=== PATIENT | male | born 1975 | race American Indian/Alaskan Native ===

== ENCOUNTER 2016-06-05 19:30 | Emergency (ER) | payer MEDICAID | END 2016-06-05 19:45 | disposition left against medical advice (07) | LOC: ED 19:30 | DX: Z00.8 Encounter for other general examination (principal); Z53.21 Procedure and treatment not carried out due to patient leaving prior to being seen by health care provider ==

== ENCOUNTER 2016-06-15 16:07 | Emergency (ER) | payer MEDICAID ==
[2016-06-15 17:40] LABS: Urine Drugs of Abuse Note Disclamer
[2016-06-15 17:55] LABS: Basophils % (Auto) 0.6 % (0.0-1.8); Eosinophils % (Auto) 1.3 % (0.0-4.3); Hematocrit 46.2 % (35.5-45.6); Hemoglobin 15.5 gm/dl (11.8-15.2); Mean Corpuscular HGB Conc 34 % (32-34); Mean Corpuscular Hemoglobin 30 pg (28-32); Mean Corpuscular Volume 90 fl (84-94); Platelet Count 211 K/mm3 (140-440); Red Blood Count 5.14 M/mm3 (3.65-5.03); Red Cell Distribution Width 14.4 % (13.2-15.2); White Blood Count 5.7 K/mm3 (4.5-11.0)
[2016-06-15 18:00] LABS: Bilirubin,Urine NEG (Negative); Blood,Urine NEG (Negative); Ketones,Urine NEG (Negative); Leukocyte Esterase,Urine TR (Negative); Mucus,Urine FEW /HPF; Nitrite,Urine NEG (Negative); Protein,Urine <15 mg/dL mg/dL (Negative); Urobilinogen,Urine < 2.0 mg/dL (<2.0)
[2016-06-15 18:01] LABS: Anion Gap 22 mmol/L; BUN/Creatinine Ratio 8.75; Blood Urea Nitrogen 7 mg/dL (9-20); Calcium 9.1 mg/dL (8.4-10.2); Carbon Dioxide 24 mmol/L (22-30); Chloride 99.1 mmol/L (98-107); Glucose 94 mg/dL (75-100); Potassium 3.7 mmol/L (3.6-5.0); Sodium 141 mmol/L (137-145)
--- NOTE | 2016-06-15 18:09 | Emergency Department Report ---
ED Psych HPI - General Chief Complaint: Psych Stated Complaint: SUICIDAL Time Seen by Provider: 06/15/16 17:46 Source: patient Mode of arrival: Ambulatory Limitations: No Limitations - History of Present Illness Initial Comments: 41-year-old male with a past medical history of bipolar presents to the hospital complains of suicidal ideation. Patient states he has felt this way for several months and it comes and goes. Splenis overdose on pills. History of suicide attempt in the past involving pill overdose and cutting his wrist. Patient states he hears voices sometimes. No physical complaints reported. Patient was seen here in the ER multiple times including yesterday for chest pain and was recently admitted for abnormal EKG and had a inpatient cardiology evaluation and echocardiogram. 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 - Related Data Previous Rx's Medication Instructions Recorded Last Taken Type Benztropine [Cogentin] 1 mg PO BID #30 tablet 06/09/[address] [Depakote Dr] 500 mg PO BID #30 tablet 06/09/16 Unknown Rx risperiDONE [RisperDAL] 2 mg PO BID #60 tablet 06/09/16 Unknown Rx Ibuprofen [Motrin] 800 mg PO Q8HR PRN #30 tablet 06/14/16 Unknown Rx Allergies Allergy/AdvReac Type Severity Reaction Status Date / Time No Known Allergies Allergy Unverified 02/16/16 11:24 ED Review of Systems ROS: Stated complaint: SUICIDAL Other details as noted in HPI Comment: All other systems reviewed and negative Other: Constitutional: No fevers chills Eyes: No eye pain visual changes ENT: No ear pain or throat pain Neck: Denies pain Respiratory: Denies cough wheezing shortness of breath Cardiovascular: Denies chest pain, palpitations, syncope GI: Denies abdominal pain, nausea, vomiting, diarrhea, : Denies dysuria Musculoskeletal: Denies back pain, Skin: Denies rash, lesions, erythema Neurologic: Denies headache, numbness, weakness Psychiatric: As per HPI ED Past Medical Hx - Past Medical History Hx Congestive Heart Failure: No Hx Diabetes: No Hx Psychiatric Treatment: Yes (PT has had previous inpatient treatment/ BIPOLAR) Hx Asthma: No Hx COPD: No Additional medical history: Outpatient is more coherent. 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 He has not had any cardiology follow-up for decades. - Surgical History Hx Open Heart Surgery: 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) Additional Surgical History: PNEUMOTHORAX - Social History Smoking Status: Current Every Day Smoker Substance Use Type: Alcohol - Medications Home Medications: Home Medications Medication Instructions Recorded Confirmed Last Taken Type Benztropine [Cogentin] 1 mg PO BID #30 tablet 06/09/16 06/15/[address] [Depakote Dr] 500 mg PO BID #30 tablet 06/09/16 Unknown Rx risperiDONE [RisperDAL] 2 mg PO BID #60 tablet 06/09/16 Unknown Rx Ibuprofen [Motrin] 800 mg PO Q8HR PRN #30 tablet 06/14/16 Unknown Rx ED Physical Exam - General Limitations: No Limitations - Other Other exam information: General: No limitations, patient is alert in no acute distress Head exam: Atraumatic, normocephalic Eyes exam: Normal appearance, pupils equal reactive to light, extraocular movements intact ENT: Moist mucous membrane, normal oropharynx Neck exam: Normal inspection, full range of motion, no meningismus nontender Respiratory exam: Clear to auscultation bilateral, no wheezes, rales, crackles Cardiovascular: Normal rate and rhythm, normal heart sounds Abdomen: Soft, nondistended, and nontender, with normal bowel sounds, no rebound, or guarding Extremity: Full range of motion normal inspection no deformity Back: Normal Inspection, full range of motion, no tenderness Neurologic: Alert, oriented x3, cranial nerves intact, no motor or sensory deficit Psychiatric: normal affect, normal mood Skin: Warm, dry, intact ED Course Vital Signs 06/15/16 06/15/16 16:50 17:52 Temperature 98.1 F Pulse Rate 102 H Respiratory 22 20 Rate Blood Pressure 108/69 O2 Sat by Pulse 97 99 Oximetry ED Medical Decision Making - Lab Data Result diagrams: 06/15/16 17:27 06/15/16 17:27 Lab Results 06/15/16 06/15/16 06/15/16 Range/Units 17:18 17:18 17:27 WBC (4.5-11.0) K/mm3 RBC (3.65-5.03) M/mm3 Hgb (11.8-15.2) gm/dl Hct (35.5-45.6) % MCV (84-94) fl MCH (28-32) pg MCHC (32-34) % RDW (13.2-15.2) % Plt Count (140-440) K/mm3 Lymph % (Auto) (13.4-35.0) % [place] % (Auto) (0.0-7.3) % Eos % (Auto) (0.0-4.3) % Baso % (Auto) (0.0-1.8) % Lymph # (1.2-5.4) K/mm3 [place] # (0.0-0.8) K/mm3 Eos # (0.0-0.4) K/mm3 Baso # (0.0-0.1) K/mm3 Seg Neutrophils % (40.0-70.0) % Seg Neutrophils # (1.8-7.7) K/mm3 Sodium 141 (137-145) mmol/L Potassium 3.7 (3.6-5.0) mmol/L Chloride 99.1 (98-107) mmol/L Carbon Dioxide 24 (22-30) mmol/L Anion Gap 22 mmol/L BUN 7 L (9-20) mg/dL Creatinine 0.8 (0.8-1.5) mg/dL Estimated GFR > 60 ml/min BUN/Creatinine Ratio 8.75 % Glucose 94 (75-100) mg/dL Calcium 9.1 (8.4-10.2) mg/dL Urine Color Yellow (Yellow) Urine Turbidity Clear (Clear) Urine pH 5.0 (5.0-7.0) Ur Specific [place] 1.015 (1.003-1.030) Urine Protein <15 mg/dl (Negative) mg/dL Urine Glucose (UA) Neg (Negative) mg/dL Urine Ketones Neg (Negative) mg/dL Urine Blood Neg (Negative) Urine Nitrite Neg (Negative) Urine Bilirubin Neg (Negative) Urine Urobilinogen < 2.0 (<2.0) mg/dL Ur Leukocyte Esterase Tr (Negative) Urine WBC (Auto) 4.0 (0.0-6.0) /HPF Urine RBC (Auto) 2.0 (0.0-6.0) /HPF U Epithel Cells (Auto) < 1.0 (0-13.0) /HPF Urine Mucus Few /HPF Urine Opiates Screen Presumptive negative Urine Methadone Screen Presumptive negative Ur Barbiturates Screen Presumptive negative Valproic Acid (50-100) ug/mL Ur Phencyclidine Scrn Presumptive negative Ur Amphetamines Screen Presumptive negative U Benzodiazepines Scrn Presumptive negative Urine Cocaine Screen Presumptive negative U Marijuana (THC) Screen Presumptive negative Drugs of Abuse Note Disclamer Plasma/Serum Alcohol (0-0.07) gm% 06/15/16 06/15/16 06/15/16 Range/Units 17:27 17:27 17:27 WBC 5.7 (4.5-11.0) K/mm3 RBC 5.14 H (3.65-5.03) M/mm3 Hgb 15.5 H (11.8-15.2) gm/dl Hct 46.2 H (35.5-45.6) % MCV 90 (84-94) fl MCH 30 (28-32) pg MCHC 34 (32-34) % RDW 14.4 (13.2-15.2) % Plt Count 211 (140-440) K/mm3 Lymph % (Auto) 36.8 H (13.4-35.0) % [place] % (Auto) 7.8 H (0.0-7.3) % Eos % (Auto) 1.3 (0.0-4.3) % Baso % (Auto) 0.6 (0.0-1.8) % Lymph # 2.1 (1.2-5.4) K/mm3 [place] # 0.4 (0.0-0.8) K/mm3 Eos # 0.1 (0.0-0.4) K/mm3 Baso # 0.0 (0.0-0.1) K/mm3 Seg Neutrophils % 53.5 (40.0-70.0) % Seg Neutrophils # 3.0 (1.8-7.7) K/mm3 Sodium (137-145) mmol/L Potassium (3.6-5.0) mmol/L Chloride (98-107) mmol/L Carbon Dioxide (22-30) mmol/L Anion Gap mmol/L BUN (9-20) mg/dL Creatinine (0.8-1.5) mg/dL Estimated GFR ml/min BUN/Creatinine Ratio % Glucose (75-100) mg/dL Calcium (8.4-10.2) mg/dL Urine Color (Yellow) Urine Turbidity (Clear) Urine pH (5.0-7.0) Ur Specific [place] (1.003-1.030) Urine Protein (Negative) mg/dL Urine Glucose (UA) (Negative) mg/dL Urine Ketones (Negative) mg/dL Urine Blood (Negative) Urine Nitrite (Negative) Urine Bilirubin (Negative) Urine Urobilinogen (<2.0) mg/dL Ur Leukocyte Esterase (Negative) Urine WBC (Auto) (0.0-6.0) /HPF Urine RBC (Auto) (0.0-6.0) /HPF U Epithel Cells (Auto) (0-13.0) /HPF Urine Mucus /HPF Urine Opiates Screen Urine Methadone Screen Ur Barbiturates Screen Valproic Acid < 2.8 L (50-100) ug/mL Ur Phencyclidine Scrn Ur Amphetamines Screen U Benzodiazepines Scrn Urine Cocaine Screen U Marijuana (THC) Screen Drugs of Abuse Note Plasma/Serum Alcohol < 0.01 (0-0.07) gm% - Medical Decision Making Patient hashallucinations and thoughts of suicidal plan therefore 1013 and transfer has been signed. I doubt compliance of medication since Depakote level is low on labs. Patient is medically cleared for psychiatric transfer. Most recent medications will be continued - Differential Diagnosis secondary gain, Homelessness, suicidal ideation, Critical Care Time: No Critical care attestation.: If time is entered above; I have spent that time in minutes in the direct care of this critically ill patient, excluding procedure time. ED Disposition Clinical Impression: Acute psychosis, Bipolar disorder, Corrected transposition of great vessels, Suicidal ideation, Medical clearance for psychiatric admission Disposition: DC/TX PSY HOSP/PSY UNIT Is pt being admited?: No Condition: Stable Time of Disposition: 19:43 (awaiting acceptance)
[2016-06-15] MEDS ORDERED: MOTRIN PO PRN (19:21)
[2016-06-15] MEDS: RisperDAL PO SCH (22:24)
[2016-06-15] MEDS: COGENTIN PO SCH (22:24)
[2016-06-16] MEDS: COGENTIN PO SCH ×2 (10:02→21:56)
[2016-06-16] MEDS: RisperDAL PO SCH ×2 (13:30→21:57)
--- NOTE | 2016-06-16 16:37 | Consultation ---
History of Present Illness - Reason for Consult Consult date: 06/16/16 Reason for consult: Suicidal thoughts - Chief Complaint Chief complaint: I was feeling something in my chest and I needed an EKG - History of Present Psychiatric Illness This is a 45 year old male with PMH of Transposition of the Great Vessels, HTN, GI Ulcers and a PPH of Bipolar Disorder v. Schizoaffective Disorder who now represents to [facility] for depression and suicidal ideation. Psychiatry was consulted after the patient was medically cleared and placed on a 1013 to evaluate the need for transfer to an emergency receiving acute psychiatric hospital. Upon assessment, this patient was familiar to the mental health it admin who accompanied this typewriter operator automatic into the room with the patient. The patient was pleasant and verbally responsive to direct questioning about his presentation. He was recently sent to a hospital in [facility], where he reportedly only stayed a few days prior to requesting discharge. We reviewed this chronic pattern and discussed the various reasons he decided to not complete the treatment process. He was mostly superficial during this conversation and appear to have much insight. We did discuss the current manifestation of his symptom cluster, which begets from somatic symptoms both in the gastrointestinal tract as well as in the thoracic area. Patient has had several surgical intervention, both in the childhood amnestic period as well as after it. Consequently, he is unable to identify specific events that lead to somatic complaints, but he frequent experiences them. He further notes that this worries him tremendously to the point of having overvalued ideas or even paranoia. There is associated sleep difficulties and other comorbid mood symptoms. Over time he has learned to imagine that there is something indeed physically wrong with him and he consequently seeks medical attention. This presentation is similar in nature. At the present time, he does reports persistent symptom of anxiety and a depressive syndrome with associated sensory misperceptions. He describes voices when under duress and describes thoughts of or dying associated with persistent sad states. He hasn't acted on these thoughts and he is actually very future oriented at the moment. Medications and Allergies Allergies Allergy/AdvReac Type Severity Reaction Status Date / Time No Known Allergies Allergy Unverified 02/16/16 11:24 Home Medications Medication Instructions Recorded Confirmed Last Taken Type Benztropine [Cogentin] 1 mg PO BID #30 tablet 06/09/16 06/15/[address] [Depakote Dr] 500 mg PO BID #30 tablet 06/09/16 Unknown Rx risperiDONE [RisperDAL] 2 mg PO BID #60 tablet 06/09/16 Unknown Rx Ibuprofen [Motrin] 800 mg PO Q8HR PRN #30 tablet 06/14/16 Unknown Rx Active Meds: Active Medications Benztropine Mesylate (Cogentin) 1 mg PO BID [facility] Last Admin: 06/16/16 10:02 Dose: 1 mg Divalproex Sodium (Depakote Dr) 500 mg PO BID [facility] Last Admin: 06/16/16 10:02 Dose: 500 mg Ibuprofen (Motrin) 800 mg PO Q8HR PRN PRN Reason: Pain Risperidone (Risperdal) 2 mg PO BID [facility] Last Admin: 06/16/16 13:30 Dose: 2 mg Past psychiatric history - Past Medical History Past Surgical History: Other (transposition of great vessels) Mental Status Exam - Vital signs Last Vital Signs Temp 97.5 F L 06/16/16 10:02 Pulse 72 06/16/16 10:02 Resp 18 06/16/16 10:02 BP 102/55 06/16/16 10:02 Pulse Ox 97 06/16/16 10:02 - Exam Orientation: time, place, person Affect: depressed, anxious Mood: anxious Thought content: somatic, other (overvalued ideas) Thought Process: Loose Associations Perceptions: none Speech: normal rate and pattern Concentration: distractible Motor activity: normal Level of consciousness: alert Memory: Intact Sleep Symptoms: Difficulty Falling Asleep Interaction: cooperative Results Result Diagrams: 06/15/16 17:27 06/15/16 17:27 Abnormal lab results 06/15/16 06/15/16 06/15/16 Range/Units 17:27 17:27 17:27 RBC 5.14 H (3.65-5.03) M/mm3 Hgb 15.5 H (11.8-15.2) gm/dl Hct 46.2 H (35.5-45.6) % Lymph % (Auto) 36.8 H (13.4-35.0) % [place] % (Auto) 7.8 H (0.0-7.3) % BUN 7 L (9-20) mg/dL Valproic Acid < 2.8 L (50-100) ug/mL All other labs normal. Assessment and Plan Assessment and plan: This is a 45 year old male with a history of Transposition of Great Vessels, HTN , GI Ulcers and Schizoaffective Disorder or Bipoalr Disorder who presents again to the ER with suicidal thoughts emanating from ruminative thinking and overvalued ideas related to somatic experience in his GI tract and thoracic area. At the current time he is taking the following medications: depakote, risperidone and cogentin. I recommend that we continue the current medication regimen and place him at an emergency receiving facility. I have begun the process of discussing the etiology of his somatic experience and the consequent overvalued ideas that lead to seeking medical attention. He does note a dental concern that the ER physicians should address if they find if an urgent concern. Often patient with schizoaffective disorder or bipolar disorder will experience poor dentition routinely due to there frequent inability to attend to their ADLs. This predisposes them to dental caries, tooth abscesses and other comorbidities. Please address this concern the patient is expressing, if needed. We appreciate the opportunity to collaborate on the care of this patient and we will both follow and help to manage this patient during his stay in the ER while he awaits placement.
[2016-06-17] MEDS: COGENTIN PO SCH (10:04)
[2016-06-17] MEDS: RisperDAL PO SCH (10:19)
--- NOTE | 2016-06-17 13:20 | Emergency Department Report ---
Blank Doc - Documentation Documentation: Vital Signs - 24 hr 06/16/16 06/16/16 06/17/16 17:01 18:18 07:14 Temperature 97.9 F 98.2 F Pulse Rate 88 79 Respiratory 16 18 Rate Blood Pressure 88/60 101/63 104/64 [Left] O2 Sat by Pulse 95 100 Oximetry No events reported. Vital signs reviewed. Awaiting placement
--- NOTE | 2016-06-17 16:21 | Progress Note ---
Subjective - Reason for Consult Consult date: 06/17/16 Reason for consult: palcement - Chief Complaint Chief complaint: This patient is not current endorsing SI. He has some insight into his illness and it's somatic presentation. He is responding appropriately to his psychotropic medication regimen. At this time, his persistent concern is his possible dental pain. Otherwise, he doesn't continue to meet criteria to maintain a 1013 as he is not expressing a desire to harm himself or others. Furthermore, he is able to attend to ADLs adequately. Mental Status Exam - Vital signs Last Vital Signs Temp 98.2 F 06/17/16 07:14 Pulse 79 06/17/16 07:14 Resp 18 06/17/16 07:14 BP 104/64 06/17/16 07:14 Pulse Ox 100 06/17/16 07:14 - Exam Orientation: time, place, person Affect: anxious Mood: anxious Thought content: phobias Thought Process: Circumstantial Perceptions: none Speech: normal rate and pattern Concentration: focused Motor activity: normal Level of consciousness: alert Memory: Intact Interaction: cooperative Assessment and Plan This is a 45 year old male with a history of Transposition of Great Vessels, HTN , GI Ulcers and Schizoaffective Disorder or Bipoalr Disorder who presents again to the ER with suicidal thoughts emanating from ruminative thinking and overvalued ideas related to somatic experience in his GI tract and thoracic area. At the current time he is taking the following medications: depakote, risperidone and cogentin. I recommend that we continue the current medication regimen and place him at an emergency receiving facility. I have begun the process of discussing the etiology of his somatic experience and the consequent overvalued ideas that lead to seeking medical attention. He does note a dental concern that the ER physicians should address if they find if an urgent concern. Often patient with schizoaffective disorder or bipolar disorder will experience poor dentition routinely due to there frequent inability to attend to their ADLs. This predisposes them to dental caries, tooth abscesses and other comorbidities. Please address this concern the patient is expressing, if needed. We appreciate the opportunity to collaborate on the care of this patient and we will both follow and help to manage this patient during his stay in the ER while he awaits placement. 06/17: Today the patient doesn't continue to meet criteria for being on a 1013. He is expressing the desire to be discharged home with the plan to follow up with an outpatient provider. Please rescind the 1013 and discharge this patient home with a script of his current medications.
[2016-06-18 00:36] VITALS: BP 104/63
== END 2016-06-17 19:51 ==
LOC: EEVIPCON 16:07 → ED 16:07
DX: R45.851 Suicidal ideations (principal); F23 Brief psychotic disorder; F32.9 Major depressive disorder, single episode, unspecified; F17.200 Nicotine dependence, unspecified, uncomplicated
CPT/HCPCS: 36415; 80048; 80164; 80307; 81001; 85025; 99285; G0480; 80320

== ENCOUNTER 2016-07-10 07:50 | Emergency (ER) | payer MEDICAID ==
[2016-07-10 08:08] VITALS: BP 110/69
[2016-07-10] MEDS ORDERED: ZOFRAN ODT PO ONE (09:39)
--- NOTE | 2016-07-10 10:10 | Emergency Department Report ---
Entered by CRISTINA BRIGHT, acting as scribe for ALISA ASHTON PA. - General Chief Complaint: Upper Respiratory Infection Stated Complaint: COLD SX/ NAUSEA Source: patient Mode of arrival: Ambulatory Limitations: No Limitations - History of Present Illness Initial Comments: 41 year old male presents to the ED for evaluation of rhinorrrhea and nausea that began this morning. Patient reports he lost house and car keys and was stuck outside in the cold causing him to be symptomatic. Patient states he was picked up by transport at approximately 07:00 this morning. Denies cough, fever , chest pain, shortness of breath, and abdominal pain. MD Complaint: rhinorrhea -: During the night Improves With: nothing Worsens With: nothing Context: other (element exposure) Associated Symptoms: rhinorrhea, nausea. denies: fever, chills, cough, chest pain, shortness of breath, abdominal pain, vomiting, diarrhea Treatments Prior to Arrival: none - Related Data Previous Rx's Medication Instructions Recorded Last Taken Type Benztropine [Cogentin] 1 mg PO BID #30 tablet 06/09/[address] [Depakote Dr] 500 mg PO BID #30 tablet 06/09/16 Unknown Rx risperiDONE [RisperDAL] 2 mg PO BID #60 tablet 06/09/16 Unknown Rx Ibuprofen [Motrin] 800 mg PO Q8HR PRN #30 tablet 06/14/16 Unknown Rx Fluticasone [Flonase] 1 spray NS QDAY #1 bottle 07/10/16 Unknown Rx Ondansetron [Zofran Odt] 4 mg PO TID #15 tab.rapdis 07/10/16 Unknown Rx Allergies Allergy/AdvReac Type Severity Reaction Status Date / Time No Known Allergies Allergy Verified 07/10/16 08:03 ED Review of Systems Comment: All other systems reviewed and negative Constitutional: malaise. denies: chills, fever Respiratory: denies: cough, shortness of breath Cardiovascular: denies: chest pain Gastrointestinal: nausea. denies: abdominal pain, vomiting, diarrhea ED Past Medical Hx - Past Medical History Hx Congestive Heart Failure: No Hx Diabetes: No Hx Psychiatric Treatment: Yes (PT has had previous inpatient treatment/ BIPOLAR / SCHIZOPHRENIA) Hx Asthma: No Hx COPD: No Additional medical history: Outpatient is more coherent. 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 He has not had any cardiology follow-up for decades. - Surgical History Hx Open Heart Surgery: 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) Additional Surgical History: PNEUMOTHORAX - Social History Smoking Status: Current Some Day Smoker Substance Use Type: Alcohol - Medications Home Medications: Home Medications Medication Instructions Recorded Confirmed Last Taken Type Benztropine [Cogentin] 1 mg PO BID #30 tablet 06/09/16 06/17/[address] [Depakote Dr] 500 mg PO BID #30 tablet 06/09/16 06/17/16 Unknown Rx risperiDONE [RisperDAL] 2 mg PO BID #60 tablet 06/09/16 06/17/16 Unknown Rx Ibuprofen [Motrin] 800 mg PO Q8HR PRN #30 tablet 06/14/16 06/17/16 Unknown Rx Fluticasone [Flonase] 1 spray NS QDAY #1 bottle 07/10/16 Unknown Rx Ondansetron [Zofran Odt] 4 mg PO TID #15 tab.rapdis 07/10/16 Unknown Rx ED Physical Exam - General Limitations: No Limitations General appearance: other (The patient is well-developed and well-nourished. Patient is in NAD) - Head Head exam: Present: atraumatic, normocephalic - ENT ENT exam: Present: other (Normal nasal mucosa with no nasal discharge.) - Expanded ENT Exam Expanded Throat exam: Negative: tonsillar erythema, tonsillomegaly, tonsillar exudate - Neck Neck exam: Present: full ROM (supple). Absent: lymphadenopathy - Respiratory Respiratory exam: Present: normal lung sounds bilaterally. Absent: respiratory distress - Cardiovascular Cardiovascular Exam: Present: regular rate, normal rhythm, normal heart sounds. Absent: systolic murmur, diastolic murmur, rubs, gallop - GI/Abdominal GI/Abdominal exam: Present: soft, normal bowel sounds. Absent: distended, tenderness, guarding, rebound - Neurological Exam Neurological exam: Present: alert, oriented X3 - Psychiatric Psychiatric exam: Present: normal affect, normal mood ED Course Vital Signs 07/10/16 08:00 Temperature 97.5 F L Pulse Rate 55 L Respiratory 18 Rate Blood Pressure 110/69 O2 Sat by Pulse 100 Oximetry ED Medical Decision Making - Lab Data Vital Signs 07/10/16 08:00 Temperature 97.5 F L Pulse Rate 55 L Respiratory 18 Rate Blood Pressure 110/69 O2 Sat by Pulse 100 Oximetry - Medical Decision Making 41 year old male presents today with nausea and rhinorrhea post being in the cold. Patient was given Zofran and is currently in no acute distress. Patient is recommended to follow up with his primary care provider. He will be sent home on Zofran and Flonase and is recommended to return to Emergency Department if symptoms worsen. ED Disposition Clinical Impression: Nausea, Rhinorrhea Disposition: DISCHARGED TO HOME OR SELFCARE Is pt being admited?: No Does the pt Need Aspirin: No Condition: Stable Instructions: Acute Nausea and Vomiting (ED) Additional Instructions: Follow up with primary care provider. Return to the Emergency Department if symptoms worsen. Prescriptions: Fluticasone [Flonase] 1 spray NS QDAY #1 bottle Ondansetron [Zofran Odt] 4 mg PO TID #15 tab.rapdis Referrals: PRIMARY CARE, [Primary Care Provider] - 3-5 Days [facility] [Outside] - 3-5 Days Forms: Work/School Release Form(ED) Time of Disposition: 10:05 This documentation as recorded by the DEANGELO calvillo REBEKAH,accurately reflects the service I personally performed and the decisions made by ,ALISA ASHTON PA.
== END 2016-07-10 10:21 | disposition home or self-care (01) ==
LOC: ED 07:50
DX: J34.89 Other specified disorders of nose and nasal sinuses (principal); R11.0 Nausea; F31.9 Bipolar disorder, unspecified; F20.9 Schizophrenia, unspecified; F17.200 Nicotine dependence, unspecified, uncomplicated
CPT/HCPCS: 99283; Q0162

== ENCOUNTER 2016-07-16 11:40 | Emergency (ER) | payer MEDICAID ==
[2016-07-16 12:17] LABS: Urine Drugs of Abuse Note Disclamer
[2016-07-16 12:29] LABS: Bilirubin,Urine NEG (Negative); Blood,Urine SM (Negative); Ketones,Urine 20 mg/dL (Negative); Leukocyte Esterase,Urine NEG (Negative); Mucus,Urine 1+ /HPF; Nitrite,Urine NEG (Negative); Protein,Urine <15 mg/dL mg/dL (Negative); Urobilinogen,Urine < 2.0 mg/dL (<2.0)
[2016-07-16 12:41] LABS: Basophils % (Auto) 0.5 % (0.0-1.8); Eosinophils % (Auto) 0.6 % (0.0-4.3); Hematocrit 43.3 % (35.5-45.6); Hemoglobin 14.6 gm/dl (11.8-15.2); Mean Corpuscular HGB Conc 34 % (32-34); Mean Corpuscular Hemoglobin 30 pg (28-32); Mean Corpuscular Volume 90 fl (84-94); Platelet Count 158 K/mm3 (140-440); Red Blood Count 4.83 M/mm3 (3.65-5.03); Red Cell Distribution Width 14.1 % (13.2-15.2)
--- NOTE | 2016-07-16 12:43 | Emergency Department Report ---
ED Psych HPI - General Chief Complaint: Psych Stated Complaint: SUICIDAL/MED REFILL Time Seen by Provider: 07/16/16 12:17 Source: patient Mode of arrival: Ambulatory Limitations: No Limitations - History of Present Illness Initial Comments: 41-year-old male presents to the emergency department for mental health evaluation. Patient is complaining of suicidal thoughts with plan. Patient states that he will overdose on medication. Patient reports a history of suicide attempt with cutting his wrists. He reports auditory hallucinations. He states he has been off his medication for several days. There are no other complaints. MD Complaint: suicidal ideation -: Gradual, days(s) (4) Associated Psychiatric Symptoms: suicidal ideation, auditory hallucinations History of same: Yes Quality: constant Improves With: none Worsens With: none Context: not taking psychiatric Associated Symptoms: denies other symptoms Treatments Prior to Arrival: none If Self Harm: admits thoughts of, has plan - Related Data Previous Rx's Medication Instructions Recorded Last Taken Type Benztropine [Cogentin] 1 mg PO BID #30 tablet 06/09/[address] [Depakote Dr] 500 mg PO BID #30 tablet 06/09/16 Unknown Rx risperiDONE [RisperDAL] 2 mg PO BID #60 tablet 06/09/16 Unknown Rx Ibuprofen [Motrin] 800 mg PO Q8HR PRN #30 tablet 06/14/16 Unknown Rx Fluticasone [Flonase] 1 spray NS QDAY #1 bottle 07/10/16 Unknown Rx Ondansetron [Zofran Odt] 4 mg PO TID #15 tab.rapdis 07/10/16 Unknown Rx Allergies Allergy/AdvReac Type Severity Reaction Status Date / Time No Known Allergies Allergy Verified 07/16/16 11:49 ED Review of Systems ROS: Stated complaint: SUICIDAL/MED REFILL Other details as noted in HPI Comment: All other systems reviewed and negative Psychiatric: auditory hallucinations, suicidal thoughts ED Past Medical Hx - Past Medical History Previous Medical History?: Yes Hx Congestive Heart Failure: No Hx Diabetes: No Hx Psychiatric Treatment: Yes (PT has had previous inpatient treatment/ BIPOLAR / SCHIZOPHRENIA) Hx Asthma: No Hx COPD: No 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 - Surgical History Hx Open Heart Surgery: 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) Additional Surgical History: PNEUMOTHORAX - Family History Family history: no significant - Social History Smoking Status: Current Some Day Smoker Substance Use Type: Alcohol - Medications Home Medications: Home Medications Medication Instructions Recorded Confirmed Last Taken Type Benztropine [Cogentin] 1 mg PO BID #30 tablet 06/09/16 06/17/[address] [Depakote Dr] 500 mg PO BID #30 tablet 06/09/16 06/17/16 Unknown Rx risperiDONE [RisperDAL] 2 mg PO BID #60 tablet 06/09/16 06/17/16 Unknown Rx Ibuprofen [Motrin] 800 mg PO Q8HR PRN #30 tablet 06/14/16 06/17/16 Unknown Rx Fluticasone [Flonase] 1 spray NS QDAY #1 bottle 07/10/16 Unknown Rx Ondansetron [Zofran Odt] 4 mg PO TID #15 tab.rapdis 07/10/16 Unknown Rx ED Physical Exam - General Limitations: No Limitations General appearance: alert, in no apparent distress - Head Head exam: Present: atraumatic, normocephalic - Eye Eye exam: Present: normal appearance, PERRL, EOMI - ENT ENT exam: Present: normal exam, normal orophraynx, mucous membranes moist - Neck Neck exam: Present: normal inspection, full ROM. Absent: tenderness - Respiratory Respiratory exam: Present: normal lung sounds bilaterally. Absent: respiratory distress - Cardiovascular Cardiovascular Exam: Present: regular rate, normal rhythm, normal heart sounds - GI/Abdominal GI/Abdominal exam: Present: soft, normal bowel sounds. Absent: distended, tenderness - Extremities Exam Extremities exam: Present: normal inspection, full ROM. Absent: tenderness - Back Exam Back exam: Present: normal inspection, full ROM. Absent: tenderness - Neurological Exam Neurological exam: Present: alert, oriented X3. Absent: motor sensory deficit - Psychiatric Psychiatric exam: Present: normal affect, normal mood, suicidal ideation - Skin Skin exam: Present: warm, dry, intact ED Course Vital Signs 07/16/16 07/16/16 11:50 12:56 Temperature 98.0 F Pulse Rate 72 Respiratory 16 18 Rate Blood Pressure 110/66 O2 Sat by Pulse 100 99 Oximetry - Reevaluation(s) Reevaluation #1: 07/16/16 12:42 Form 1013 has been signed and placed in the patient's chart. Checking labs. Patient will need mental health evaluation. ED Medical Decision Making - Lab Data Result diagrams: 07/16/16 12:20 07/16/16 12:20 - Differential Diagnosis suicidal ideation, schizophrenia Critical care attestation.: If time is entered above; I have spent that time in minutes in the direct care of this critically ill patient, excluding procedure time. ED Disposition Clinical Impression: Suicidal ideation Disposition: DC/TX PSY HOSP/PSY UNIT Is pt being admited?: No Condition: Stable Time of Disposition: 13:21
[2016-07-16 12:55] LABS: Anion Gap 20 mmol/L; BUN/Creatinine Ratio 23.33; Blood Urea Nitrogen 21 mg/dL (9-20); Calcium 9.3 mg/dL (8.4-10.2); Carbon Dioxide 24 mmol/L (22-30); Chloride 100.9 mmol/L (98-107); Glucose 97 mg/dL (75-100); Potassium 3.8 mmol/L (3.6-5.0); Sodium 141 mmol/L (137-145)
[2016-07-17] MEDS ORDERED: ZOFRAN ODT PO PRN (02:03)
[2016-07-17] MEDS ORDERED: ATIVAN IM PRN (02:04)
--- NOTE | 2016-07-17 02:05 | Event Note ---
Date: 07/17/16 Vital signs are reviewed and appreciated. Psychiatric consultation is pending at this time. Valproic acid level is added on. We will continue patient's and the medications, with the exception of valproic acid. Psychiatric placement is pending. Vital Signs 07/16/16 07/16/16 07/16/16 11:50 12:56 22:33 Temperature 98.0 F Pulse Rate 72 72 Respiratory 16 18 16 Rate Blood Pressure 110/66 Blood Pressure 112/78 [Left] O2 Sat by Pulse 100 99 100 Oximetry
[2016-07-17] MEDS: COGENTIN PO SCH ×2 (03:00→10:38)
[2016-07-17] MEDS: RisperDAL PO SCH ×2 (03:00→12:14)
[2016-07-17 13:18] VITALS: BP 90/61
--- NOTE | 2016-07-17 15:29 | Consultation ---
History of Present Illness - Reason for Consult Consult date: 07/17/16 Reason for consult: Mental Evaluation - SI Requesting physician: ZOHREH CHACON - Chief Complaint Chief complaint: "I want to kill myself" - History of Present Psychiatric Illness 41-year-old AA male presents to the emergency department for mental health evaluation. Per ER assessment, patient is complaining of suicidal thoughts with plan. Upon arrival to patient's room, he was asleep. Once awake, patient stated , "Where am I." Once I oriented him to his surrounding he told me that he has not taken his medications, because they are located in his car. He explained that he let a stranger use his car 2 or 3 days ago. A "friend" vouched for the male stranger, but he never returned his car. He states, "When I'm not taking medication I get this way." Patient is confused with a tangential thought process and had to be redirected multiple times when asked questions. He did know his birthday and year, but he couldn't name the last president. He admits to hearing voices, "Telling him to kill himself by taking pills." He denies VH' s at this time. Medications and Allergies Allergies Allergy/AdvReac Type Severity Reaction Status Date / Time No Known Allergies Allergy Verified 07/16/16 11:49 Home Medications Medication Instructions Recorded Confirmed Last Taken Type Benztropine [Cogentin] 1 mg PO BID #30 tablet 06/09/16 07/16/16 Unknown Rx Divalproex [Kenzie Person] 500 mg PO BID #30 tablet 06/09/16 07/16/16 Unknown Rx risperiDONE [RisperDAL] 2 mg PO BID #60 tablet 06/09/16 07/16/16 Unknown Rx Ondansetron [Zofran Odt] 4 mg PO TID #15 tab.rapdis 07/10/16 07/16/16 Unknown Rx Active Meds: Active Medications Benztropine Mesylate (Cogentin) 1 mg PO BID JUAN PABLO Last Admin: 07/17/16 10:38 Dose: 1 mg Lorazepam (Ativan) 2 mg IM Q4HR PRN PRN Reason: Agitation Ondansetron HCl (Zofran Odt) 4 mg PO TID PRN PRN Reason: Nausea Risperidone (Risperdal) 2 mg PO BID JUAN PABLO Last Admin: 07/17/16 12:14 Dose: 2 mg Past psychiatric history - Past Medical History Past Medical History: other (Transposition of the great vessels) Past Surgical History: No surgical history - past Psychiatric treatment and history Psych: Bipolar, Schizophrenia psychiatric treatment history: [facility] and multiple admission to [facility]. Denies any family hx of psy. - Social History Social history: lives with family (7 kids total), smoking Mental Status Exam - Vital signs Last Vital Signs Temp 97.7 F 07/17/16 13:00 Pulse 73 07/17/16 13:00 Resp 18 07/17/16 13:00 BP 90/61 07/17/16 13:00 Pulse Ox 98 07/17/16 13:00 - Exam Narrative exam: ROS (+) paranoid, (+) SI Orientation: place, person Affect: flat Mood: congruent with affect Thought content: other (paranoid) Thought Process: Circumstantial Perceptions: auditory Speech: normal rate and pattern Concentration: distractible Motor activity: other (Lying Down) Level of consciousness: confused Memory: Intact Interaction: cooperative Results Result Diagrams: 07/16/16 12:20 07/16/16 12:20 Abnormal lab results 07/17/16 Range/Units 02:21 Valproic Acid < 2.8 L (50-100) ug/mL All other labs normal. Assessment and Plan Assessment and plan: Impression: Hx of Schizoaffective Disorder. Multiple inpatient services within the last 3 months. Positive for THC and VA level 2.8. Recommendation: Continue 1013 and pending transfer to inpatient psychiatric services today.
== END 2016-07-17 19:02 ==
LOC: ED 11:40 → EEVIPCON 11:40 → ED 07-17 19:02
DX: R45.851 Suicidal ideations (principal); F17.200 Nicotine dependence, unspecified, uncomplicated
CPT/HCPCS: 36415; 80048; 80164; 80307; 81001; 85025; 99285; G0480; 80320

== ENCOUNTER 2016-11-17 23:37 | Emergency (ER) | payer SELFPAY ==
[2016-11-18 00:29] LABS: Anion Gap 22 mmol/L; Blood Urea Nitrogen 15 mg/dL (9-20); Calcium 8.7 mg/dL (8.4-10.2); Carbon Dioxide 21 mmol/L (22-30); Chloride 103.9 mmol/L (98-107); Glucose 75 mg/dL (75-100); Potassium 3.5 mmol/L (3.6-5.0); Sodium 143 mmol/L (137-145)
[2016-11-18 00:36] LABS: Basophils % (Auto) 0.4 % (0.0-1.8); Eosinophils % (Auto) 1.2 % (0.0-4.3); Hematocrit 40.3 % (35.5-45.6); Hemoglobin 13.8 gm/dl (11.8-15.2); Mean Corpuscular HGB Conc 34 % (32-34); Mean Corpuscular Hemoglobin 31 pg (28-32); Mean Corpuscular Volume 90 fl (84-94); Platelet Count 176 K/mm3 (140-440); Red Cell Distribution Width 13.7 % (13.2-15.2); White Blood Count 6.5 K/mm3 (4.5-11.0)
--- NOTE | 2016-11-18 03:27 | Emergency Department Report ---
HPI - General Chief Complaint: Psych Time Seen by Provider: 11/18/16 03:11 - HPI HPI: This is a 41-year-old Afro-[place]isian male presents to the emergency department with complaint of suicidal thoughts. He says that he has been off his medications for the past few months. He last was on Cogentin, Depakote and Risperdal back in June of this year but he says that "they changed some of it. " He has a psychiatric history of bipolar disorder and schizophrenia and has required inpatient treatment in the past. He denies any homicidal ideations or any auditory or visual hallucinations. He has not taken anything for symptoms prior to presentation. He does not have a specific plan as to how he would harm himself but does admit to the suicidal ideation since yesterday. 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) Additional Surgical History: PNEUMOTHORAX - Social History Smoking Status: Never Smoker Substance Use Type: None - Medications Home Medications: Home Medications Medication Instructions Recorded Confirmed Last Taken Type No Known Home Medications [No 11/18/16 11/18/16 Unknown History Reported Home Medications] ED Review of Systems ROS: Stated complaint: MED REFILL/SUICIDAL/MH EVAL Other details as noted in HPI Comment: All other systems reviewed and negative Constitutional: denies: chills, fever Eyes: denies: eye pain, eye discharge, vision change ENT: denies: ear pain, throat pain Respiratory: denies: cough, shortness of breath, wheezing Cardiovascular: denies: chest pain, palpitations Gastrointestinal: denies: abdominal pain, nausea, diarrhea Genitourinary: denies: urgency, dysuria Musculoskeletal: denies: back pain, joint swelling, arthralgia Skin: denies: rash, lesions Neurological: denies: headache, weakness, paresthesias Psychiatric: suicidal thoughts. denies: auditory hallucinations, visual hallucinations, homicidal thoughts Physical Exam - Physical Exam Vital Signs: Vital Signs 11/17/16 23:52 Temperature 97.8 F Pulse Rate 74 Respiratory 16 Rate Blood Pressure 104/74 O2 Sat by Pulse 95 Oximetry Physical Exam: GENERAL: The patient is well-developed well-nourished. HEENT: Normocephalic. Atraumatic. Extraocular motions are intact. Patient has moist mucous membranes. Pupils equal reactive to light bilaterally. NECK: Supple. Trachea is midline. CHEST/LUNGS: Clear to auscultation. There is no respiratory distress noted. HEART/CARDIOVASCULAR: Regular. There is no tachycardia. There is no gallop rub or murmur. ABDOMEN: Abdomen is soft, nontender. Patient has normal bowel sounds. There is no abdominal distention. SKIN: Skin is warm and dry. NEURO: The patient is awake, alert, and oriented. The patient is cooperative. The patient has no focal neurologic deficits. The patient has normal speech. MUSCULOSKELETAL: There is no tenderness or deformity. There is no limitation range of motion. There is no evidence of acute injury. PSYCH: Patient has a flat affect. ED Course Vital Signs 11/17/16 23:52 Temperature 97.8 F Pulse Rate 74 Respiratory 16 Rate Blood Pressure 104/74 O2 Sat by Pulse 95 Oximetry ED Medical Decision Making - Lab Data Result diagrams: 11/18/16 00:01 11/18/16 00:01 - Medical Decision Making 41-year-old male presents the emergency department with complaint of suicidal ideations. He has a history of bipolar disorder and schizophrenia. Labs are mostly unremarkable. Negative blood alcohol level. Urine drug screen is positive for perpetuates and marijuana but he does not appear acutely intoxicated. Vital signs stable throughout his ED course. Patient has been made a 1013 secondary to his suicidal ideations. He appears medically cleared for psychiatric placement. - Differential Diagnosis schizophrenia, bipolar disorder, schizoaffective, substance abuse, depressi Critical Care Time: No Critical care attestation.: If time is entered above; I have spent that time in minutes in the direct care of this critically ill patient, excluding procedure time. ED Disposition Clinical Impression: Suicidal ideations, History of schizophrenia, History of bipolar disorder Disposition: DC/TX-65 PSY HOSP/PSY UNIT Is pt being admited?: No Condition: Stable Referrals: PRIMARY CARE, [Primary Care Provider] - 3-5 Days Time of Disposition: 04:20
[2016-11-18 03:54] LABS: Urine Drugs of Abuse Note Disclamer
[2016-11-18 04:00] LABS: Bilirubin,Urine NEG (Negative); Blood,Urine SM (Negative); Ketones,Urine 20 mg/dL (Negative); Leukocyte Esterase,Urine NEG (Negative); Mucus,Urine FEW /HPF; Nitrite,Urine NEG (Negative); Urobilinogen,Urine < 2.0 mg/dL (<2.0)
[2016-11-18 10:02] VITALS: BP 99/61
--- NOTE | 2016-11-18 14:13 | Consultation ---
History of Present Illness - Reason for Consult Consult date: 11/18/16 Reason for consult: Mental Health Evaluation Requesting physician: CRISTI COLBERT - Chief Complaint Chief complaint: "What do you want" - History of Present Psychiatric Illness This is a 41-year-old Afro-Tongan male presents to the emergency department with complaint of suicidal thoughts. Today patient is calm with a tangential thought process. He had to be redirected multiple times throughout the assessment, possibly responding to some type of stimuli. He stated that he took depakote, cogentin, and risperdal 2 months ago. He could not answer how he got to [facility]. He continue stating, "I have not taking my meds." Patient is a poor historian. No gestures of SI/HI's and AVH's. Medications and Allergies Allergies Allergy/AdvReac Type Severity Reaction Status Date / Time No Known Allergies Allergy Verified 07/16/16 11:49 Home Medications Medication Instructions Recorded Confirmed Last Taken Type No Known Home Medications [No 11/18/16 11/18/16 Unknown History Reported Home Medications] Past psychiatric history - Past Medical History Past Medical History: other (Unable to obtain) Past Surgical History: Other (Unable to obtain) - past Psychiatric treatment and history psychiatric treatment history: [facility] inpatient setting. Unable to obtain a fam psy hx. - Social History Social history: other (Unable to obtain) Mental Status Exam - Vital signs Last Vital Signs Temp 98.2 F 11/18/16 10:00 Pulse 83 11/18/16 10:00 Resp 15 11/18/16 10:00 BP 99/61 11/18/16 10:00 Pulse Ox 95 11/17/16 23:52 - Exam Narrative exam: ROS: (+) psychotic/manic MSE: Appearance: calm, cooperative, disheveled Behavior: poor eye contact Speech: regular rate and tone Mood: "not good" Affect: labile Thought Process: tangential Thought Content: No gestures of SI/HI's and AVH's. Motor Activity: lying in bed Cognition: A/Ox 2 Insight: limited Judgment: limited Results Result Diagrams: 11/18/16 00:01 11/18/16 00:01 Abnormal lab results 11/18/16 Range/Units 00:01 Potassium 3.5 L (3.6-5.0) mmol/L Carbon Dioxide 21 L (22-30) mmol/L All other labs normal. Assessment and Plan Assessment and plan: Impression: Historical Dx per medical chart: Bipolar DO/Schizophrenia. Possible psychosis/raven. Today patient is calm with a tangential thought process. DDx: Schizoaffective Recommendation/Plan: Continue 1013 with placement to inpatient psy services. Start Risperdal 0.5 mg PO HS for psychotic symptoms/mood, Cogentin 0.5 mg PO HS for EPS Prevention, and Depakote 500 mg BID for mood. Discussed the possible metabolic side effect of Risperdal with patient.
[2016-11-18 15:41] LABS: Alanine Aminotransferase 13 units/L (7-56); Alkaline Phosphatase 55 units/L (35-129)
[2016-11-18] MEDS ORDERED: RisperDAL PO SCH (22:00)
[2016-11-18] MEDS ORDERED: COGENTIN PO SCH (22:00)
== END 2016-11-19 06:05 ==
LOC: ED 23:37
DX: R45.851 Suicidal ideations (principal); F20.9 Schizophrenia, unspecified; F31.9 Bipolar disorder, unspecified
CPT/HCPCS: 36415; 80048; 80164; 80307; 81001; 84075; 84450; 84460; 85025; 99285; G0480; 80320

== ENCOUNTER 2017-01-06 22:26 | Emergency (ER) | payer MEDICAID ==
[2017-01-06 22:49] VITALS: BP 97/62
[2017-01-06 23:41] LABS: Urine Drugs of Abuse Note Disclamer
[2017-01-06 23:45] LABS: Basophils % (Auto) 0.4 % (0.0-1.8); Eosinophils % (Auto) 0.8 % (0.0-4.3); Hematocrit 37.8 % (35.5-45.6); Hemoglobin 12.9 gm/dl (11.8-15.2); Mean Corpuscular HGB Conc 34 % (32-34); Mean Corpuscular Hemoglobin 31 pg (28-32); Mean Corpuscular Volume 89 fl (84-94); Platelet Count 154 K/mm3 (140-440); Red Blood Count 4.22 M/mm3 (3.65-5.03); Red Cell Distribution Width 14.1 % (13.2-15.2); White Blood Count 6.4 K/mm3 (4.5-11.0)
[2017-01-06 23:49] LABS: Anion Gap 18 mmol/L; BUN/Creatinine Ratio 16.66; Blood Urea Nitrogen 15 mg/dL (9-20); Calcium 8.9 mg/dL (8.4-10.2); Carbon Dioxide 27 mmol/L (22-30); Chloride 100.5 mmol/L (98-107); Glucose 128 mg/dL (75-100); Potassium 3.6 mmol/L (3.6-5.0); Sodium 142 mmol/L (137-145)
[2017-01-07] MEDS ORDERED: AQUAPHOR TP SCH
[2017-01-07 00:02] LABS: Bilirubin,Urine NEG (Negative); Blood,Urine MOD (Negative); Ketones,Urine NEG (Negative); Leukocyte Esterase,Urine SM (Negative); Mucus,Urine FEW /HPF; Nitrite,Urine NEG (Negative); Protein,Urine <15 mg/dL mg/dL (Negative); Urobilinogen,Urine < 2.0 mg/dL (<2.0)
--- NOTE | 2017-01-07 00:33 | Emergency Department Report ---
ED Psych HPI - General Chief Complaint: Psych Stated Complaint: MENTAL HEALTH Time Seen by Provider: 01/06/17 23:53 Source: patient Mode of arrival: Ambulatory - History of Present Illness Initial Comments: 41-year-old male with known psychiatric history and history of schizophrenia off his meds for 1 month here with complaint of suicidality. Patient feels like he wants to tell himself. He does not have a plan currently. He also complains of scrotal rash. He put some deodorant around his scrotum and has now been having some chafing. Complaint: suicidal ideation -: Gradual Associated Psychiatric Symptoms: depression, suicidal ideation Context: not taking psychiatric Associated Symptoms: denies: confusion, headache, shortness of breath, nausea, vomiting, syncope, insomnia Treatments Prior to Arrival: none - Related Data Home Medications Medication Instructions Recorded Confirmed Last Taken No Known Home Medications [No 11/18/16 11/18/16 Unknown Reported Home Medications] Allergies Allergy/AdvReac Type Severity Reaction Status Date / Time No Known Allergies Allergy Verified 07/16/16 11:49 ED Review of Systems ROS: Stated complaint: MENTAL HEALTH Other details as noted in HPI Comment: All other systems reviewed and negative Constitutional: denies: chills, fever Eyes: denies: eye pain, eye discharge, vision change ENT: denies: ear pain, throat pain Respiratory: denies: cough, shortness of breath, wheezing Cardiovascular: denies: chest pain, palpitations Endocrine: no symptoms reported Gastrointestinal: denies: abdominal pain, nausea, diarrhea Genitourinary: denies: urgency, dysuria Musculoskeletal: denies: back pain, joint swelling, arthralgia Skin: denies: rash, lesions Neurological: denies: headache, weakness, paresthesias Psychiatric: denies: anxiety, depression Hematological/Lymphatic: denies: easy bleeding, easy bruising 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 Absent: scleral icterus, conjunctival injection - ENT ENT exam: Present: mucous membranes moist - Neck Neck exam: Present: normal inspection - Respiratory Respiratory exam: Present: normal lung sounds bilaterally. Absent: respiratory distress - Cardiovascular Cardiovascular Exam: Present: regular rate, normal rhythm. Absent: systolic murmur, diastolic murmur, rubs, gallop - GI/Abdominal GI/Abdominal exam: Present: soft, normal bowel sounds - Rectal Rectal exam: Present: deferred - External exam: Present: other (irritation incision to the left lateral aspect of the scrotum) - Extremities Exam Extremities exam: Present: normal inspection - Back Exam Back exam: Present: normal inspection - Neurological Exam Neurological exam: Present: alert, oriented X3 - Psychiatric Psychiatric exam: Present: normal mood, agitated, suicidal ideation - Skin Skin exam: Present: warm, dry, intact, normal color. Absent: rash ED Course Vital Signs 01/06/17 22:46 Temperature 97.4 F L Pulse Rate 74 Respiratory 16 Rate Blood Pressure 97/62 O2 Sat by Pulse 96 Oximetry ED Medical Decision Making - Lab Data Result diagrams: 01/06/17 22:59 01/06/17 22:59 Laboratory Results - last 24 hr 01/06/17 01/06/17 01/06/17 22:59 22:59 22:59 WBC 6.4 RBC 4.22 Hgb 12.9 Hct 37.8 MCV 89 MCH 31 MCHC 34 RDW 14.1 Plt Count 154 Lymph % (Auto) 25.5 [place] % (Auto) 4.4 Eos % (Auto) 0.8 Baso % (Auto) 0.4 Lymph # 1.6 [place] # 0.3 Eos # 0.0 Baso # 0.0 Seg Neutrophils % 68.9 Seg Neutrophils # 4.4 Sodium 142 Potassium 3.6 Chloride 100.5 Carbon Dioxide 27 Anion Gap 18 BUN 15 Creatinine 0.9 Estimated GFR > 60 BUN/Creatinine Ratio 16.66 Glucose 128 H Calcium 8.9 Urine Color Urine Turbidity Urine pH Ur Specific [place] Urine Protein Urine Glucose (UA) Urine Ketones Urine Blood Urine Nitrite Urine Bilirubin Urine Urobilinogen Ur Leukocyte Esterase Urine WBC (Auto) Urine RBC (Auto) U Epithel Cells (Auto) Urine Mucus Urine Opiates Screen Urine Methadone Screen Ur Barbiturates Screen Ur Phencyclidine Scrn Ur Amphetamines Screen U Benzodiazepines Scrn Urine Cocaine Screen U Marijuana (THC) Screen Drugs of Abuse Note Plasma/Serum Alcohol < 0.01 01/06/17 01/06/17 Unknown Unknown WBC RBC Hgb Hct MCV MCH MCHC RDW Plt Count Lymph % (Auto) [place] % (Auto) Eos % (Auto) Baso % (Auto) Lymph # [place] # Eos # Baso # Seg Neutrophils % Seg Neutrophils # Sodium Potassium Chloride Carbon Dioxide Anion Gap BUN Creatinine Estimated GFR BUN/Creatinine Ratio Glucose Calcium Urine Color Yellow Urine Turbidity Clear Urine pH 5.0 Ur Specific [place] 1.018 Urine Protein <15 mg/dl Urine Glucose (UA) Neg Urine Ketones Neg Urine Blood Mod Urine Nitrite Neg Urine Bilirubin Neg Urine Urobilinogen < 2.0 Ur Leukocyte Esterase Sm Urine WBC (Auto) 1.0 Urine RBC (Auto) 3.0 U Epithel Cells (Auto) < 1.0 Urine Mucus Few Urine Opiates Screen Presumptive negative Urine Methadone Screen Presumptive negative Ur Barbiturates Screen Presumptive negative Ur Phencyclidine Scrn Presumptive negative Ur Amphetamines Screen Presumptive negative U Benzodiazepines Scrn Presumptive negative Urine Cocaine Screen Presumptive negative U Marijuana (THC) Screen Presumptive positive Drugs of Abuse Note Disclamer Plasma/Serum Alcohol - Medical Decision Making 41-year-old male with a history of SI and suicidal ideations. Patient hasn't known psych history and has not been taking his meds. Plan to place the patient on a psychiatric hold and we'll have mental health assessment. He is medically clear for psychiatric evaluation. I did order him some ointment for his scrotal chafing. Portions of this chart were dictated with dictation software. There may be dictation errors contained within this note. Critical care attestation.: If time is entered above; I have spent that time in minutes in the direct care of this critically ill patient, excluding procedure time. ED Disposition Clinical Impression: Suicidal ideation, Chafing Disposition: DC/TX-65 PSY HOSP/PSY UNIT Is pt being admited?: No Condition: Stable Referrals: PRIMARY CARE, [Primary Care Provider] - 3-5 Days
== END 2017-01-07 11:26 ==
LOC: ED 22:26 → EEVIPCON 22:26 → ED 01-07 11:26
DX: R45.851 Suicidal ideations (principal); L30.4 Erythema intertrigo
CPT/HCPCS: 36415; 80048; 80307; 81001; 85025; 99285; G0480; 80320

== ENCOUNTER 2020-10-25 10:31 | Emergency (ER) | payer MEDICAID ==
--- NOTE | 2020-10-25 12:08 | Emergency Department Report ---
ED General Adult HPI - General Chief complaint: Medical Clearance Stated complaint: MEDICATION REFILL Time Seen by Provider: 10/25/20 11:27 Source: patient Mode of arrival: Ambulatory Limitations: No Limitations - History of Present Illness Initial comments: 45 year old male with pmhx of bipolar d/o presents to ED requesting refill on his meds. Pt reports hx of bipolar disorder. He is currently on Haldol 5 mg, Depakote 500 mg and benztropine 1 mg. Patient states that he is not completely out but is about to run out. Patient states that he was visiting [place] for the past 6 to 8 months and recently came back home 2 days ago. He states that he does not have an appointment with a local psychiatrist as yet but he is going to try to make one at place call [facility] but he is not sure when that appointment is going to be and he was hoping to get a refill his medication before he runs out. Patient denies any symptoms currently. MD Complaint: Medical refill -: days(s) - Related Data Previous Rx's Medication Instructions Recorded Last Taken Type Benztropine Mesylate 1 mg PO QHS #30 tablet 10/25/20 Unknown Rx Divalproex ER [DepaKOTE ER] 1,000 mg PO QHS #60 tablet 10/25/20 Unknown Rx haloperidoL [Haldol] 5 mg PO QHS #30 tablet 10/25/20 Unknown Rx Allergies Allergy/AdvReac Type Severity Reaction Status Date / Time No Known Allergies Allergy Verified 07/16/16 11:49 ED Review of Systems ROS: Stated complaint: MEDICATION REFILL Other details as noted in HPI Comment: All other systems reviewed and negative Constitutional: denies: chills, fever Eyes: denies: eye pain, eye discharge, vision change ENT: denies: ear pain, throat pain Respiratory: denies: cough, shortness of breath, wheezing Cardiovascular: denies: chest pain, palpitations Endocrine: no symptoms reported Gastrointestinal: denies: abdominal pain, nausea, diarrhea Genitourinary: denies: urgency, dysuria, frequency, hematuria, discharge, testicular pain, testicular mass Musculoskeletal: denies: back pain, joint swelling, arthralgia Skin: denies: rash, lesions Neurological: denies: headache, weakness, numbness, paresthesias, confusion, abnormal gait, vertigo Psychiatric: denies: anxiety, depression, auditory hallucinations, visual hallucinations, homicidal thoughts, suicidal thoughts Hematological/Lymphatic: denies: easy bleeding, easy bruising ED Past Medical Hx - Past Medical History Previous Medical History?: Yes Hx Congestive Heart Failure: No Hx Diabetes: No Hx Psychiatric Treatment: Yes (PT has had previous inpatient treatment/ BIPOLAR/ SCHIZOPHRENIA) Hx Asthma: No Hx COPD: No 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 - Surgical History Past Surgical History?: Yes Hx Open Heart Surgery: 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) Additional Surgical History: PNEUMOTHORAX - Social History Smoking Status: Never Smoker Substance Use Type: None, Alcohol - Medications Home Medications: Home Medications Medication Instructions Recorded Confirmed Last Taken Type Benztropine Mesylate 1 mg PO QHS #30 tablet 10/25/20 Unknown Rx Divalproex ER [DepaKOTE ER] 1,000 mg PO QHS #60 tablet 10/25/20 Unknown Rx haloperidoL [Haldol] 5 mg PO QHS #30 tablet 10/25/20 Unknown Rx ED Physical Exam - General Limitations: No Limitations General appearance: alert, in no apparent distress - Head Head exam: Present: atraumatic, normocephalic, normal inspection - Eye Eye exam: Present: normal appearance, PERRL, EOMI Pupils: Present: normal accommodation - Respiratory Respiratory exam: Present: normal lung sounds bilaterally. Absent: respiratory distress - Cardiovascular Cardiovascular Exam: Present: regular rate, normal rhythm, normal heart sounds - Neurological Exam Neurological exam: Present: alert, oriented X3, CN II-XII intact, normal gait - Psychiatric Psychiatric exam: Present: normal affect, normal mood - Skin Skin exam: Present: intact ED Course Vital Signs 10/25/20 10:41 Temperature 98.3 F Pulse Rate 73 Respiratory 16 Rate Blood Pressure 109/67 O2 Sat by Pulse 96 Oximetry Critical care attestation.: If time is entered above; I have spent that time in minutes in the direct care of this critically ill patient, excluding procedure time. ED Disposition Clinical Impression: Medication refill Disposition: TO HOME OR SELFCARE Is pt being admited?: No Does the pt Need Aspirin: No Condition: Stable Instructions: Medicine Refill at the Emergency Department Additional Instructions: It is important that you make an appointment for follow up with psychiatrist at [facility] for continue care and continued refills on your meds. Return to ED if anything changes or worsens. Prescriptions: Benztropine Mesylate 1 mg PO QHS #30 tablet Divalproex ER [DepaKOTE ER] 1,000 mg PO QHS #60 tablet haloperidoL [Haldol] 5 mg PO QHS #30 tablet Referrals: PHI SONI MD [Staff Physician] - 3-5 Days Time of Disposition: 12:08
== END 2020-10-25 12:21 | disposition home or self-care (01) ==
LOC: ED 10:31

== ENCOUNTER 2021-11-28 10:58 | Emergency (ER) | payer MEDICAID | END 2021-11-28 12:50 | disposition left against medical advice (07) | LOC: ED 10:58 | DX: Z00.8 Encounter for other general examination (principal); Z53.21 Procedure and treatment not carried out due to patient leaving prior to being seen by health care provider ==